=== PATIENT | male | born 1955 | race Caucasian/White ===

== ENCOUNTER 2017-12-01 07:47 | Day surgery (SDC) | payer BC ==
[~2017-12-01] VITALS: Ht 165.1 cm; Wt 79.9 kg
[2017-12-01] MEDS ORDERED: LIPITOR 10MG10 MG PO (08:14)
[2017-12-01] MEDS ORDERED: ZIAC 2.5/6.25MG1 TAB PO (08:14)
[2017-12-01] MEDS ORDERED: ASPIRIN 81M81 MG/TA2 PO (08:15)
[2017-12-01 08:17] VITALS: BP 124/86; PULSE 75; TEMP 98.3
[2017-12-01 09:40] VITALS: BP 138/89; PULSE 81
[2017-12-01 09:55] VITALS: BP 118/82; PULSE 79
[2017-12-01 10:10] VITALS: BP 97/42; PULSE 69
[2017-12-01 10:25] VITALS: BP 105/68; PULSE 71
== END 2017-12-01 10:35 | disposition home or self-care (01) ==
LOC: SDCO 07:47
DX: Z12.11 Encounter for screening for malignant neoplasm of colon (principal); K57.30 Diverticulosis of large intestine without perforation or abscess without bleeding; I10 Essential (primary) hypertension; E78.00 Pure hypercholesterolemia, unspecified
CPT/HCPCS: OP; J2250; J3010; J7030

== ENCOUNTER 2020-11-08 11:32 | Inpatient (IN) | payer BC ==
[~2020-11-08] VITALS: Ht 167.6 cm; Wt 82.0 kg
[~2020-11-08 11:32] MED LIST: ASPIRIN 81M81 MG/TA2 PO; LIPITOR 10MG10 MG PO; ZIAC 2.5/6.25MG1 TAB PO
[2020-11-08 12:50] LABS: BASO % 0.3 % (0.0-2.0); GRAN # 5.9 (1.4-6.5); GRAN % 74.3 % (42.2-75.2); HEMATOCRIT 37.9 % (42.0-52.0); HEMOGLOBIN 13.2 g/dl (13.5-18.0); MEAN CELL VOLUME 90 fl (80.0-100.0); MEAN CORPUSCULAR HEMOGLOBIN 31 pg (27.0-31.0); MEAN CORPUSCULAR HGB CONC 35 g/dl (33.0-37.0); MEAN PLATELET VOLUME 11.2 fl (7.4-10.4); MONO # 0.9 (0.1-0.6); MONO % 11.8 % (1.7-9.3); PLATELET COUNT 303 K/mm3 (130-400); RED BLOOD COUNT 4.23 M/mm3 (4.20-5.60); REDCELL DISTRIBUTION WIDTH-CV 13.7 % (11.5-14.5)
[2020-11-08 13:13] LABS: COLLECTION METHOD CLEAN CATCH
[2020-11-08 13:23] LABS: MUCOUS Present /lpf; PH 6 (5-8); SQUAMOUS EPITHELIAL None Seen /hpf; URINE APPEARANCE Hazy; URINE BACTERIA None Seen /hpf; URINE BILIRUBIN Negative (NEGATIVE); URINE BLOOD 1+ (NEGATIVE); URINE COLOR Yellow; URINE GLUCOSE Negative (NEGATIVE); URINE KETONE Trace (NEGATIVE); URINE LEUKOCYTE ESTERASE Negative (NEGATIVE); URINE NITRATE Negative (NEGATIVE); URINE PROTEIN(semi-quant) 2+ (NEGATIVE); URINE RBC 0-2 /hpf; URINE UROBILINOGEN Negative (NEGATIVE)
[2020-11-08 13:39] LABS: ALBUMIN 3.7 gm/dL (3.5-5.0); BILIRUBIN,TOTAL 0.7 mg/dL (0.0-1.0); CALCIUM 8.2 mg/dL (8.4-10.2); CREATININE, serum 1.03 (0.66-1.25); POTASSIUM 3.7 mmol/L (3.4-5.0); TOTAL PROTEIN 7.2 gm/dL (6.4-8.2)
--- NOTE | 2020-11-08 15:57 | NUR ---
Patient arrived to the floor at this time. He is alert and oriented. Stateds that he feels a little better than he did when he arrived. Pt denies pain. Pt denies shortness of breath but states he feels he has to work a little harder to breath. O2 sats are stable at 93% at this time on 2L of O2. IV site is CD&I, flushed well. Patient denies weakness or unsteadiness while ambulating. Patient's has been updated on his status and that he is stable in his room. Will continue to monitor. Call light is in reach.
[2020-11-08 16:00] VITALS: BP 139/82; PULSE 109; TEMP 102.9
--- NOTE | 2020-11-08 16:49 | NUR ---
Patient settled into room. Instructed on ordering food through dietary using phone. Informed patient to call for help ambulating if he feels weak or unsteady but denies feeling this way before arrival. PRN tylenol provided for 102.9 temp recorded on addmission vitals. Patient is aware of his POC at this time. will continue to monitor. Call light is in reach.
[2020-11-08 19:12] VITALS: BP 118/76; PULSE 84; TEMP 98
--- NOTE | 2020-11-08 20:53 | NUR ---
Patient laying in bed and watching TV upon enter the room. Patient alert and oriented. Patient denies any pain or discomfort. Denies SOB or dyspnea at this time. Patient currently on 2L via NC. Respirations even and unlabored. VS stable. Temp 98.0 F. No acute distress noted. All scheduled meds given per NOV. Patient's updated on patient's status. Call light within reach. Patient denies any needs at this time.
[2020-11-09] VITALS (8 sets, daily range): BP systolic 110–127; BP diastolic 58–74; PULSE 73–92; TEMP 97.6–98.4
--- NOTE | 2020-11-09 05:59 | NUR ---
Patient slept on and off over the night. VS remains stable. No fever. No acute respiratory distress noted. Call light within reach. Patient denies any needs at this time.
[2020-11-09 06:25] LABS: BASO % 0.1 % (0.0-2.0); GRAN # 5.6 (1.4-6.5); GRAN % 81.3 % (42.2-75.2); LYMPH # 0.7 (1.2-3.4); LYMPH % 10.2 % (20.0-51.0); MEAN CELL VOLUME 89 fl (80.0-100.0); MEAN CORPUSCULAR HGB CONC 35 g/dl (33.0-37.0); MEAN PLATELET VOLUME 9.7 fl (7.4-10.4); MONO # 0.5 (0.1-0.6); MONO % 7.8 % (1.7-9.3); PLATELET COUNT 257 K/mm3 (130-400); RED BLOOD COUNT 3.57 M/mm3 (4.20-5.60)
[2020-11-09 06:34] LABS: HEMATOCRIT 31.9 % (42.0-52.0); HEMOGLOBIN 11.1 g/dl (13.5-18.0); MEAN CORPUSCULAR HEMOGLOBIN 31 pg (27.0-31.0)
[2020-11-09 06:39] LABS: CALCIUM 8.1 mg/dL (8.4-10.2); CREATININE, serum 0.73 (0.66-1.25); MAGNESIUM 2.3 mg/dL (1.6-2.3); POTASSIUM 3.8 mmol/L (3.4-5.0)
--- NOTE | 2020-11-09 08:20 | NUR ---
PT AOX4, DENIES SOB WITH EXERTION OR AT REST, HAS NO LABORED BREATHING, PT ON 2L NC SATTING 92%. PT REPORTS 2/10 THROAT PAIN AND REQUESTED TYLENOL, REFUSED COUGH MEDICINE PRN OPTION. BREAKFAST AND ICE WATER BROUGHT IN, NO OTHER NEEDS.
--- NOTE | 2020-11-09 11:00 | NUR ---
REMDESIVIR INFUSING, DC'D IV FLUIDS
--- NOTE | 2020-11-09 13:00 | NUR ---
WAITING ON MED TO BE DELIVERED TO HOSPITAL.
--- NOTE | 2020-11-09 15:51 | NUR ---
The patient is positive for COVID. SW contacted the patient's room phone to discuss discharge plan. The patient lives in [place] with his , Raquel (ph#[phone]). He reports independence with ADLs and does not have any DME. The patient's PCP is Dr. Kevin Ramirez and he receives his medications from [facility] He reports no difficulties obtaining his meds. The patient does not have a DPOA-HC in EMR, but he states that he does have one completed. He states that it designates his . The patient plans to return home with his upon discharge. He is currently requiring 2 liters of oxygen. He stats that if he does need oxygen, he would prefer the DME company in [place]. SW to continue to follow.
--- NOTE | 2020-11-09 18:01 | NUR ---
PT PLEASANT, AOX4, DENIES PAIN/DISCOMFORT, DENIES SOB, VITALS STABLE, GOOD APPETITE, EXTENSION BROUGHT INTO ROOM FOR PT, PT EAGER FOR DISCHARGE, PT WEARS GLASSES, NO OTHER NEEDS
--- NOTE | 2020-11-09 19:00 | NUR ---
Received report from Carmen. Seen patient awake, lying in bed. He is on O2 at 2lpm via NC. No needs at this time. Call light within reach.
[2020-11-10 03:44] VITALS: BP 102/55; PULSE 71; TEMP 97.9
[2020-11-10 07:14] LABS: BASO % 0.1 % (0.0-2.0); GRAN # 9.8 (1.4-6.5); GRAN % 81.2 % (42.2-75.2); HEMOGLOBIN 11.3 g/dl (13.5-18.0); LYMPH # 1.1 (1.2-3.4); LYMPH % 9.2 % (20.0-51.0); MEAN CELL VOLUME 88 fl (80.0-100.0); MEAN CORPUSCULAR HEMOGLOBIN 31 pg (27.0-31.0); MEAN CORPUSCULAR HGB CONC 35 g/dl (33.0-37.0); MEAN PLATELET VOLUME 9.4 fl (7.4-10.4); MONO # 1.1 (0.1-0.6); MONO % 8.9 % (1.7-9.3); PLATELET COUNT 324 K/mm3 (130-400); RED BLOOD COUNT 3.65 M/mm3 (4.20-5.60); REDCELL DISTRIBUTION WIDTH-CV 13.2 % (11.5-14.5)
[2020-11-10 07:21] LABS: CALCIUM 8.3 mg/dL (8.4-10.2); CREATININE, serum 0.81 (0.66-1.25); POTASSIUM 3.9 mmol/L (3.4-5.0)
[2020-11-10 07:22] LABS: HEMATOCRIT 32.1 % (42.0-52.0)
[2020-11-10 07:49] VITALS: BP 126/73; PULSE 71; TEMP 97.7
--- NOTE | 2020-11-10 08:00 | NUR ---
PT PLEASANT, AOX4, ICE WATER BROUGHT IN FOR PT, VITALS TAKEN AND REVIEWED, MEDICATIONS ADMINISTERED, ASSESSMENT PERFORMED, PT ON 2L NC FLUCTUATING FROM 90-92%. PT EAGER FOR DISCHARGE.
--- NOTE | 2020-11-10 10:57 | NUR ---
PATIENT RETURNED FROM DIALYSIS; NEW ORDERS NOTED.
[2020-11-10] MEDS ORDERED: DOXYCYCLINE 10100 MG PO (11:32)
[2020-11-10] MEDS ORDERED: ROBITUSSIN DM 105 ML PO (11:34)
[2020-11-10] MEDS ORDERED: DECADRON6 MG PO (11:34)
--- NOTE | 2020-11-10 11:36 | NUR ---
ELVIRA CALLED TO ASK ABOUT PT QUARANTINE STATUS. SHE STATED PT COULD TECHNICALLY BE OUT OF ISOLATION BUT TO BE CAUTIOUS AROUND THOSE WHO COULD HAVE HEALTH ISSUES.
--- NOTE | 2020-11-10 11:56 | NUR ---
PT WALKED BACK AND FORTH IN ROOM SEVERAL TIMES ON ROOM AIR W/O COMPLAINT.
[2020-11-10 12:02] VITALS: BP 126/75; PULSE 72; TEMP 98.1
[2020-11-10] MEDS ORDERED: OXYGEN NASAL.CANN (12:07)
--- NOTE | 2020-11-10 13:11 | NUR ---
The patient is ready to d/c today and qualified for 2 liters of oxygen. ANTIONE contacted the patient's , Raquel, to review d/c plan and inform her that he qualified for home oxygen. Raquel reports that it would be easier and she would prefer just to get the oxygen from a [employer] company in [place]. ANTIONE contacted and faxed the oxygen order to Dayo at [facility] [employer]. Awaiting delivery of oxygen.
--- NOTE | 2020-11-10 14:48 | NUR ---
PT'S CALLED THAT OXYGEN ARRIVED AND SHE CAN COME PICK HIM UP
--- NOTE | 2020-11-10 15:22 | NUR ---
Juli Edward delivered the oxygen to the patient's room. The patient is to discharge back home with his today, 11/10. No additional needs at this time.
--- NOTE | 2020-11-10 16:06 | NUR ---
PT ESCORTED OUT VIA WHEELCHAIR WITH PT BELONGINGS. DISCHARGE EDUCATION PROVIDED, TELE AND IV REMOVED, NO QUESTIONS AT THIS TIME.
== END 2020-11-10 16:00 | disposition home or self-care (01) | DRG 177 ==
LOC: COL.ER 11:32 → MEDICAL 14:33 → EDBEDREQ 14:55 → MEDICAL 23:00
PROVIDERS: Family Medicine; Hospitalist; ADMIT Internal Medicine
PROC: XW033E5 Introduction of Remdesivir Anti-infective into Peripheral Vein, Percutaneous Approach, New Technology Group 5 (ICD-10-PCS; principal; 2020-11-09)
DX: U07.1 COVID-19 (principal); J12.82 Pneumonia due to coronavirus disease 2019; J96.01 Acute respiratory failure with hypoxia; E87.1 Hypo-osmolality and hyponatremia; Z90.89 Acquired absence of other organs; I10 Essential (primary) hypertension; E78.5 Hyperlipidemia, unspecified; D64.9 Anemia, unspecified
CPT/HCPCS: 99223-AI; 99232-AI; 99239; J0696; J1650; J7030; J7050; J8540